=== PATIENT | female | born 1995 | race African-American/Black ===

== ENCOUNTER 2016-11-26 18:00 | Emergency (ER) | payer OTHER ==
[2016-11-26] MEDS ORDERED: ONDANSETRON 4 MG ORAL DISINTEGRATING TAB (S0181) As Ordered ONE (18:20)
--- NOTE | 2016-11-26 18:55 | EDDOCDS ---
Nurse's Notes [facility] Name: Miracle Mcclure Age: 20 yrs Sex: Female : 1995 Arrival Date: 11/26/2016 Time: 18:00 Bed TR7 Private MD: SABINA Huertas Diagnosis: Vomiting;Diarrhea, unspecified Presentation: 11/26 18:03 Presenting complaint: Patient states: nausea/vomiting/diarrhea since this morning. rs3 exposure to sick contact yesterday. Adult Sepsis Screening: The patient does not have new or worsening altered mentation. Patient's respiratory rate is less than 22. Systolic blood pressure is greater than 100. Patient has a qSOFA score of 0- Negative Sepsis Screen. Suicide/Homicide risk assessment- the patient denies having any suicidal and/or homicidal ideations and does not present with any other emotional, behavioral or mental health complaints. Status: The patient is a dependent. Transition of care: patient was not received from another setting of care. 18:03 Acuity: MONTSERRAT Level 4 rs3 18:03 Method Of Arrival: Walkin/Carried/Asstd rs3 Triage Assessment: 18:05 General: Appears in no apparent distress. Pain: Location: abdomen. Pt Declines HIV rs3 testing. 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 none - PMHx: none; - PSHx: none; - Social history: Smoking status: Patient states was never smoker of tobacco. No barriers to communication noted, The patient speaks fluent Norwegian. - : The pt / caregiver states he / she is not on anticoagulants. Home medication list is obtained from the patient. - Exposure Risk Screening:: None identified. Screenin:53 Screening information is obtained from the patient. Fall risk: No risks identified. jjr Assistance ADL's: requires no assistance with activities of daily living. Abuse/DV Screen: The patient / caregiver reports he/she is: not in a situation that causes fear, pain or injury. Nutritional screening: No deficits noted. Advance Directives: There is no active DNR order. home support is adequate. Assessment: 18:52 General: Appears in no apparent distress, Behavior is appropriate for age. EENT: jjr Reports nasal congestion. Respiratory: Airway is patent Respiratory effort is even, unlabored, Respiratory pattern is regular. GI: Abdomen is non- distended Reports diarrhea, nausea, vomiting. Derm: No deficits noted. Vital Signs: 18:01 BP 136 / 72; Pulse 104; Resp 16; Temp 99.1(O); Pulse Ox 100% on R/A; Weight 68.04 kg elp (R); Height 5 ft. 2 in. (157.48 cm) (R); 18:01 Body Mass Index 27.44 (68.04 kg, 157.48 cm) elp Vitals: 18:01 Log In Time: November 26, 2016 at 17:59. elp ED Course: 18:01 Patient visited by Yojana Guerrero PCA. elp 18:01 SABINA Huertas is Private Physician. elp 18:01 Patient moved to Waiting elp 18:02 Patient visited by Yojana Guerrero PCA. elp 18:02 Patient moved to Pre RCE elp 18:05 Triage Initiated rs3 18:17 Patient moved to Triage 1 ar3 18:19 [facility]. btw 18:19 Carolin Alicia MD is Attending Physician. btw 18:19 Patient visited by Rodrigue Bolton PA. btw 18:24 SABINA Huertas is Referral Physician. btw 18:27 [facility] Payment Agreement was scanned into [employer] and attached to record. ks16 18:30 Patient moved to TR3 jjr 18:30 Patient moved to TR7 ar3 18:53 The patient / caregiver is instructed regarding the plan of care and ED course. jjr 18:53 No IV's were initiated during this patient's visit. No procedures done that require jjr assistance. Administered Medications: 18:23 Drug: Ondansetron ODT 4 mg [ondansetron 4 mg disintegrating tablet (1 tabs)] Route: PO; jjr Order Results: There are currently no results for this order. Outcome: 18:24 Discharge ordered by Provider. btw 18:53 Discharge Assessment: patient administered narcotics - no. The following High Risk jjr Discharge criteria are identified: None. Discharged to home ambulatory, with significant other. Condition: stable. Discharge instructions given to patient, Instructed on discharge instructions, follow up and referral plans. medication usage, Demonstrated understanding of instructions, medications, Prescriptions given X 1. No special radiology studies were completed. Property sent home with patient. 18:54 Patient left the ED. delvin Signatures: Cathi Zhang RN RN Alyx Mars RN RN rs3 Jayshree Michaud, OIL FIELD PIPELINE SUPERVISOR OIL FIELD PIPELINE SUPERVISOR ar3 Rodrigue Bolton PA PA btw Yojana Guerrero, OIL FIELD PIPELINE SUPERVISOR OIL FIELD PIPELINE SUPERVISOR elp Caro Martinez, Reg Reg ks16 MTDD
--- NOTE | 2016-11-26 18:55 | EDDOCDS ---
Physician Documentation [facility] Name: Miracle Mcclure Age: 20 yrs Sex: Female : 1995 Arrival Date: 11/26/2016 Time: 18:00 Bed TR7 Private MD: SABINA Huertas Disposition: 11/26/16 18:24 Discharged to Home/Self Care. Impression: Vomiting, Diarrhea, unspecified. - Condition is Stable. - Discharge Instructions: Food Choices to Help Relieve Diarrhea, Adult, Viral Gastroenteritis, [id number]. - Prescriptions for ZOFRAN ODT 4 mg - dissolve 1 tablet by ORAL route 4 times per day As needed do not chew, do not swallow whole; 10 tablet. - Medication Reconciliation, Local Pharmacy Hours form. - Follow up: SABINA Huertas; When: 1 - 2 days; Reason: Further diagnostic work-up, Recheck today's complaints, Continuance of care. - Problem is new. - Symptoms are unchanged. Historical: - Allergies: no known allergies; - Home Meds: 1. none - PMHx: none; - PSHx: none; - Social history: Smoking status: Patient states was never smoker of tobacco. No barriers to communication noted, The patient speaks fluent Norwegian. - : The pt / caregiver states he / she is not on anticoagulants. Home medication list is obtained from the patient. - Exposure Risk Screening:: None identified. 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 2 in. (157.48 cm) (R); 18:01 Body Mass Index 27.44 (68.04 kg, 157.48 cm) elp MDM: 18:06 Ondansetron ODT Oral Disintegrating Tablet 4 mg PO once ordered. btw 18:27 Financial registration complete. ks16 18:27 [facility] Payment Agreement was scanned into [employer] and attached to record. [email or web address] Administered Medications: 18:23 Drug: Ondansetron ODT 4 mg [ondansetron 4 mg disintegrating tablet (1 tabs)] Route: PO; jjr Signatures: Cathi Zhang RN RN jjr Alyx Oliver RN RN rs3 Rodrigue Bolton PA PA btw Caro Martinez, Reg Reg ks16 The chart was reviewed and I authenticate all verbal orders and agree with the evaluation and treatment provided.Attachments: 18:27 [facility] Payment Agreement ks16 MTDD
--- NOTE | 2016-11-28 19:55 | EDDOCDS ---
Physician Documentation [facility] Name: Miracle Mcclure Age: 20 yrs Sex: Female : 1995 Arrival Date: 11/26/2016 Time: 18:00 Bed TR7 Private MD: SABINA Huertas Disposition: 11/26/16 18:24 Discharged to Home/Self Care. Impression: Vomiting, Diarrhea, unspecified. - Condition is Stable. - Discharge Instructions: Food Choices to Help Relieve Diarrhea, Adult, Viral Gastroenteritis, [id number]. - Prescriptions for ZOFRAN ODT 4 mg - dissolve 1 tablet by ORAL route 4 times per day As needed do not chew, do not swallow whole; 10 tablet. - Medication Reconciliation, Local Pharmacy Hours form. - Follow up: SABINA Huertas; When: 1 - 2 days; Reason: Further diagnostic work-up, Recheck today's complaints, Continuance of care. - Problem is new. - Symptoms are unchanged. Historical: - Allergies: no known allergies; - Home Meds: 1. none - PMHx: none; - PSHx: none; - Social history: Smoking status: Patient states was never smoker of tobacco. No barriers to communication noted, The patient speaks fluent Kittitian. - : The pt / caregiver states he / she is not on anticoagulants. Home medication list is obtained from the patient. - Exposure Risk Screening:: None identified. 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 2 in. (157.48 cm) (R); 18:01 Body Mass Index 27.44 (68.04 kg, 157.48 cm) elp MDM: 18:06 Ondansetron ODT Oral Disintegrating Tablet 4 mg PO once ordered. btw 18:27 Financial registration complete. ks 18:27 [facility] Payment Agreement was scanned into [employer] and attached to record. [email or web address] 11/27 12:49 T-Sheet-- Draft Copy was scanned into [employer] and attached to record. gb Administered Medications: 01/29 18:23 Drug: Ondansetron ODT 4 mg [ondansetron 4 mg disintegrating tablet (1 tabs)] Route: PO; jjr Signatures: Frida Harrison, Reg Reg gb Cathi Zhang RN RN jjr Alyx Oliver RN RN rs3 Rodrigue Bolton PA PA btw Caro Martinez, Reg Reg ks16 The chart was reviewed and I authenticate all verbal orders and agree with the evaluation and treatment provided.Attachments: 18:27 [facility] Payment Agreement [email or web address] 11/27 12:49 T-Sheet-- Draft Copy gb Chart Complete MTDD
--- NOTE | 2016-11-28 19:55 | EDDOCDS ---
Nurse's Notes [facility] Name: Miracle Mcclure Age: 20 yrs Sex: Female : 1995 Arrival Date: 11/26/2016 Time: 18:00 Bed TR7 Private MD: SABINA Huertas Diagnosis: Vomiting;Diarrhea, unspecified Presentation: 11/26 18:03 Presenting complaint: Patient states: nausea/vomiting/diarrhea since this morning. rs3 exposure to sick contact yesterday. Adult Sepsis Screening: The patient does not have new or worsening altered mentation. Patient's respiratory rate is less than 22. Systolic blood pressure is greater than 100. Patient has a qSOFA score of 0- Negative Sepsis Screen. Suicide/Homicide risk assessment- the patient denies having any suicidal and/or homicidal ideations and does not present with any other emotional, behavioral or mental health complaints. Status: The patient is a dependent. Transition of care: patient was not received from another setting of care. 18:03 Acuity: MONTSERRAT Level 4 rs3 18:03 Method Of Arrival: Walkin/Carried/Asstd rs3 Triage Assessment: 18:05 General: Appears in no apparent distress. Pain: Location: abdomen. Pt Declines HIV rs3 testing. 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 none - PMHx: none; - PSHx: none; - Social history: Smoking status: Patient states was never smoker of tobacco. No barriers to communication noted, The patient speaks fluent Mauritanian. - : The pt / caregiver states he / she is not on anticoagulants. Home medication list is obtained from the patient. - Exposure Risk Screening:: None identified. Screenin:53 Screening information is obtained from the patient. Fall risk: No risks identified. jjr Assistance ADL's: requires no assistance with activities of daily living. Abuse/DV Screen: The patient / caregiver reports he/she is: not in a situation that causes fear, pain or injury. Nutritional screening: No deficits noted. Advance Directives: There is no active DNR order. home support is adequate. Assessment: 18:52 General: Appears in no apparent distress, Behavior is appropriate for age. EENT: jjr Reports nasal congestion. Respiratory: Airway is patent Respiratory effort is even, unlabored, Respiratory pattern is regular. GI: Abdomen is non- distended Reports diarrhea, nausea, vomiting. Derm: No deficits noted. Vital Signs: 18:01 BP 136 / 72; Pulse 104; Resp 16; Temp 99.1(O); Pulse Ox 100% on R/A; Weight 68.04 kg elp (R); Height 5 ft. 2 in. (157.48 cm) (R); 18:01 Body Mass Index 27.44 (68.04 kg, 157.48 cm) elp Vitals: 18:01 Log In Time: November 26, 2016 at 17:59. elp ED Course: 18:01 Patient visited by Yojana Guerrero PCA. elp 18:01 SABINA Huertas is Private Physician. elp 18:01 Patient moved to Waiting elp 18:02 Patient visited by Yojana Guerrero PCA. elp 18:02 Patient moved to Pre RCE elp 18:05 Triage Initiated rs3 18:17 Patient moved to Triage 1 ar3 18:19 [facility]. btw 18:19 Carolin Alicia MD is Attending Physician. btw 18:19 Patient visited by Rodrigue Bolton PA. btw 18:24 SABINA Huertas is Referral Physician. btw 18:27 [facility] Payment Agreement was scanned into [employer] and attached to record. ks16 18:30 Patient moved to TR3 jjr 18:30 Patient moved to TR7 ar3 18:53 The patient / caregiver is instructed regarding the plan of care and ED course. jjr 18:53 No IV's were initiated during this patient's visit. No procedures done that require jjr assistance. 11/27 12:49 T-Sheet-- Draft Copy was scanned into [employer] and attached to record. gb Administered Medications: 11/26 18:23 Drug: Ondansetron ODT 4 mg [ondansetron 4 mg disintegrating tablet (1 tabs)] Route: PO; jjr Order Results: There are currently no results for this order. Outcome: 18:24 Discharge ordered by Provider. btw 18:53 Discharge Assessment: patient administered narcotics - no. The following High Risk jjr Discharge criteria are identified: None. Discharged to home ambulatory, with significant other. Condition: stable. Discharge instructions given to patient, Instructed on discharge instructions, follow up and referral plans. medication usage, Demonstrated understanding of instructions, medications, Prescriptions given X 1. No special radiology studies were completed. Property sent home with patient. 18:54 Patient left the ED. shellijr Signatures: Frida Harrison, Reg Reg gb Cathi Zhang RN RN jjr Soosairaj, Rosemary, RN RN rs3 Jayshree Michaud, CONSTRUCTION EQUIPMENT MECHANIC HELPER CONSTRUCTION EQUIPMENT MECHANIC HELPER ar3 Rodrigue Bolton, DELANO WICK btw Yojana Guerrero, CONSTRUCTION EQUIPMENT MECHANIC HELPER CONSTRUCTION EQUIPMENT MECHANIC HELPER elp Caro Martinez, Reg Reg ks16 Chart Complete MTDD
--- NOTE | 2016-11-28 19:55 | EDDOCDS ---
Physician Documentation [facility] Name: Miracle Mcclure Age: 20 yrs Sex: Female : 1995 Arrival Date: 11/26/2016 Time: 18:00 Bed TR7 Private MD: SABINA Huertas Disposition: 11/26/16 18:24 Discharged to Home/Self Care. Impression: Vomiting, Diarrhea, unspecified. - Condition is Stable. - Discharge Instructions: Food Choices to Help Relieve Diarrhea, Adult, Viral Gastroenteritis, [id number]. - Prescriptions for ZOFRAN ODT 4 mg - dissolve 1 tablet by ORAL route 4 times per day As needed do not chew, do not swallow whole; 10 tablet. - Medication Reconciliation, Local Pharmacy Hours form. - Follow up: SABINA Huertas; When: 1 - 2 days; Reason: Further diagnostic work-up, Recheck today's complaints, Continuance of care. - Problem is new. - Symptoms are unchanged. Historical: - Allergies: no known allergies; - Home Meds: 1. none - PMHx: none; - PSHx: none; - Social history: Smoking status: Patient states was never smoker of tobacco. No barriers to communication noted, The patient speaks fluent Swazi. - : The pt / caregiver states he / she is not on anticoagulants. Home medication list is obtained from the patient. - Exposure Risk Screening:: None identified. 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 2 in. (157.48 cm) (R); 18:01 Body Mass Index 27.44 (68.04 kg, 157.48 cm) elp MDM: 18:06 Ondansetron ODT Oral Disintegrating Tablet 4 mg PO once ordered. btw 18:27 Financial registration complete. ks 18:27 [facility] Payment Agreement was scanned into [employer] and attached to record. ks16 11/27 12:49 T-Sheet-- Draft Copy was scanned into [employer] and attached to record. gb Administered Medications: 01/29 18:23 Drug: Ondansetron ODT 4 mg [ondansetron 4 mg disintegrating tablet (1 tabs)] Route: PO; jjr Signatures: Frida Harrison, Reg Reg gb Cathi Zhang RN RN jjr Alyx Oliver RN RN rs3 Rodrigue Bolton PA PA btw Caro Martinez, Reg Reg ks16 The chart was reviewed and I authenticate all verbal orders and agree with the evaluation and treatment provided.Attachments: 18:27 [facility] Payment Agreement [email or web address] 11/27 12:49 T-Sheet-- Draft Copy gb Chart Complete MTDD
== END 2016-11-26 18:54 | disposition home or self-care (01) ==
LOC: M ED 18:00
DX: R11.2 Nausea with vomiting, unspecified (principal); R19.7 Diarrhea, unspecified

== ENCOUNTER 2019-01-20 19:51 | Emergency (ER) | payer OTHER ==
[~2019-01-20] VITALS: Ht 160 cm; Wt 72.7 kg
[2019-01-20 19:51] VITALS: BP 150/79
[2019-01-20 20:48] LABS: INFLUENZA A AMPLIFICATION NEGATIVE (NEGATIVE); INFLUENZA B AMPLIFICATION NEGATIVE (NEGATIVE)
== END 2019-01-20 23:00 | disposition left against medical advice (07) ==
LOC: M ED 19:51
DX: R06.02 Shortness of breath (principal); R50.9 Fever, unspecified; R53.83 Other fatigue; R42 Dizziness and giddiness; R20.2 Paresthesia of skin; R47.81 Slurred speech; Z20.828 Contact with and (suspected) exposure to other viral communicable diseases; Z20.89 Contact with and (suspected) exposure to other communicable diseases; J45.909 Unspecified asthma, uncomplicated; Z87.09 Personal history of other diseases of the respiratory system

== ENCOUNTER 2019-02-16 04:17 | Emergency (ER) | payer OTHER ==
[~2019-02-16] VITALS: Ht 160 cm; Wt 70.0 kg
[2019-02-16 04:17] VITALS: BP 134/69
[2019-02-16] MEDS ORDERED: FOLI400T PO (04:26)
== END 2019-02-16 05:56 | disposition left against medical advice (07) ==
LOC: M ED 04:17
DX: R06.02 Shortness of breath (principal); Z53.21 Procedure and treatment not carried out due to patient leaving prior to being seen by health care provider

== ENCOUNTER → 2019-09-04 | Outpatient (CLI) | payer OTHER ==
[~2019-09-04] MED LIST: FOLI400T PO
--- NOTE | 2019-09-04 19:48 | REP ---
Two-view chest: 09/04/2019. Indication: Dyspnea. Cough. Comparison: None. Findings: The lungs are clear. There is no pleural effusion or pneumothorax. The cardiomediastinal silhouette is unremarkable. Impression: Clear lungs. Electronically Signed by Richard Busch DO 09/04/2019 07:40 P
== END ==
LOC: M LRY 19:03
PROVIDERS: ATTEND Nurse Practitioner Family
DX: R05 Cough (principal)
CPT/HCPCS: 71046; 87804; 87880; G0463

== ENCOUNTER → 2019-09-04 | Outpatient (REF) | payer OTHER | LOC: M SFHCLERA 19:22 | PROVIDERS: ATTEND Nurse Practitioner Family | DX: R05 Cough (principal) ==

== ENCOUNTER 2020-03-02 07:11 | Emergency (ER) | payer OTHER ==
[~2020-03-02] VITALS: Ht 160 cm; Wt 75.9 kg
[2020-03-02] MEDS ORDERED: CABE0.5T PO (07:26)
[2020-03-02] MEDS ORDERED: METF-838 PO (07:26)
[2020-03-02] MEDS ORDERED: METOCLOPRAMIDE INJ 10MG/2ML VIAL (J2765 PER 1) IV ONE (07:30)
[2020-03-02] MEDS ORDERED: ACETAMINOPHEN 325 MG TAB PO ONE (07:30)
[2020-03-02 07:41] LABS: BASO # 0.1 10^3/uL (0.0-0.2); BASO % 0.3 % (0.0-1.0); HEMATOCRIT 46.9 % (36.0-47.0); HEMOGLOBIN 16.1 g/dl (12.0-15.5); LYMPH # 2.2 10^3/uL (1.5-5.0); LYMPH % 10.7 % (24.0-44.0); MEAN CORPUSCULAR HEMOGLOBIN 28.2 pg (27.0-33.0); MEAN CORPUSCULAR HGB CONC 34.3 g/dl (32.0-36.5); MEAN CORPUSCULAR VOLUME 82.3 fl (80.0-96.0); MONO % 9.8 % (0.0-5.0); NEUTROPHILS # 16.2 10^3/uL (1.5-8.5); NEUTROPHILS % 78.3 % (36.0-66.0); PLATELET COUNT, AUTOMATED 344 10^3/uL (150-450); WHITE BLOOD COUNT 20.7 10^3/uL (4.0-10.0)
[2020-03-02 07:50] LABS: ALBUMIN 2.4 GM/DL (3.2-5.2); ALT/SGPT 14 U/L (12-78); BILIRUBIN,DIRECT < 0.1 MG/DL (0.0-0.2); BILIRUBIN,TOTAL 0.3 MG/DL (0.2-1.0); BLOOD UREA NITROGEN 11 MG/DL (7-18); CALCIUM LEVEL 8.4 MG/DL (8.5-10.1); CARBON DIOXIDE LEVEL 26 MEQ/L (21-32); CHLORIDE LEVEL 102 MEQ/L (98-107); CREATININE FOR GFR 0.94 MG/DL (0.55-1.30); GLOMERULAR FILTRATION RATE > 60.0 (>60); GLUCOSE, FASTING 113 MG/DL (70-100); HCG, SERUM QUALITATIVE NEGATIVE (NEGATIVE); LIPASE 38 U/L (73-393); POTASSIUM SERUM 4.6 MEQ/L (3.5-5.1); SODIUM LEVEL 134 MEQ/L (136-145); TOTAL PROTEIN 6.1 GM/DL (6.4-8.2)
[2020-03-02] MEDS ORDERED: NS 1,000 ML IV ONE (08:00)
[2020-03-02] MEDS ORDERED: ISOVUE-370 76% 100ML VIAL As Ordered ONE (08:56)
--- NOTE | 2020-03-02 09:15 | REP ---
PELVIC SONOGRAPHY: HISTORY: Status post egg retrieval procedure 1 day prior with abdominal pain. No comparison pelvic sonography. FINDINGS: Transabdominal scanning is performed. The patient declined transvaginal scanning due to symptoms. Uterine dimensions are normal at 8.1 x 3.8 x 4.6 cm. Endometrial echo is 1.1 cm thick. No focal uterine mass is seen. There is a moderate amount of diffuse abdominal ascites in the right upper quadrant, left upper quadrant, and centrally in the pelvis. The ovaries are bilaterally moderately to markedly enlarged. Right ovary dimensions are 13.1 x 8.0 x 11.7 cm. Left ovary dimensions of 10.8 x 7.1 x 8.5 cm. There are multiple ovarian follicles. Blood flow is present in both ovaries by Doppler. Ovarian volumes are calculated at 641 mL as on the right and 341 mL on the left. IMPRESSION: Moderate to marked bilateral ovarian enlargement, diffuse moderate abdominal ascites. Findings suggestive of some degree of ovarian hyperstimulation syndrome. Electronically Signed by Ruben Ramos MD 03/02/2020 12:02 P
--- NOTE | 2020-03-02 10:19 | REP ---
CT ABDOMEN AND PELVIS WITH IV CONTRAST: TECHNIQUE: Axial contrast enhanced images from the lung bases to the pubic symphysis using 100 mL Isovue-370 intravenous contrast material with multiplanar reformations. Visualized lung bases are clear. The liver, spleen, adrenals, pancreas and kidneys are unremarkable in appearance. There is no abdominal aortic aneurysm. I see no adenopathy. There is no free air. There is moderate free fluid throughout the abdomen and pelvis. The ovaries are markedly enlarged and contain multiple innumerable large follicles. Maximum diameter of the right ovary is 11.7 cm, displaced superiorly. Maximum diameter of the left ovary is about 8.4 cm. The uterus is grossly unremarkable. The appendix is normal. IMPRESSION: Markedly enlarged ovaries both containing large innumerable follicles. Findings suggest ovarian hyperstimulation. There is moderate free fluid throughout the abdomen and pelvis. Electronically Signed by Anoop Bonds MD 03/02/2020 10:29 A
[2020-03-02] MEDS ORDERED: ACE65ERTAB PO (10:48)
[2020-03-02 11:00] VITALS: BP 139/76
== END 2020-03-02 11:20 | disposition home or self-care (01) ==
LOC: M ED 07:11
DX: N98.1 Hyperstimulation of ovaries (principal); R00.0 Tachycardia, unspecified; J45.909 Unspecified asthma, uncomplicated; Z79.899 Other long term (current) drug therapy; Z79.84 Long term (current) use of oral hypoglycemic drugs
CPT/HCPCS: 36415; 74177; 76856; 80047; 80048; 80076; 81001; 83605; 83690; 84702; 84703; 85025; 86850; 86900; 86901; 93041; 93976; 96361; 96374; 99285; J2765; Q9967

== ENCOUNTER → 2020-04-07 | Outpatient (CLI) | payer OTHER ==
[~2020-04-07] MED LIST changes: +ACE65ERTAB PO; +CABE0.5T PO; +METF-838 PO
[2020-04-07 10:09] LABS: ESTRADIOL 146.2 PG/ML; PROGESTERONE 57.27 NG/ML
== END ==
LOC: M WUC 08:14
PROVIDERS: ATTEND Obstetrics & Gynecology Reproductive Endocrinology
DX: E28.9 Ovarian dysfunction, unspecified (principal)

== ENCOUNTER → 2020-04-12 | Outpatient (CLI) | payer OTHER ==
[2020-04-12 11:05] LABS: PROGESTERONE 57.19 NG/ML
== END ==
LOC: M WUC 08:09
PROVIDERS: ATTEND Obstetrics & Gynecology Reproductive Endocrinology
DX: Z32.00 Encounter for pregnancy test, result unknown (principal)

== ENCOUNTER → 2020-04-14 | Outpatient (CLI) | payer OTHER ==
[~2020-04-14] MED LIST changes: +D3400CAP PO; +FOLI1TAB11 PO; +PRENATAL VIT
[2020-04-14 10:21] LABS: ESTRADIOL 296.5 PG/ML; THYROID STIMULATING HORMONE 2.68 uIU/ML (0.358-3.740)
[2020-04-14 10:42] LABS: PROGESTERONE 52.08 NG/ML
== END ==
LOC: M WUC 08:03
PROVIDERS: ATTEND Obstetrics & Gynecology Reproductive Endocrinology
DX: Z32.01 Encounter for pregnancy test, result positive (principal)

== ENCOUNTER → 2020-04-28 | Outpatient (CLI) | payer OTHER ==
[~2020-04-28] MED LIST changes: -D3400CAP PO; -FOLI1TAB11 PO; -PRENATAL VIT
[2020-04-28 11:15] LABS: ESTRADIOL 596.3 PG/ML; PROGESTERONE 65.33 NG/ML
== END ==
LOC: M WUC 08:05
PROVIDERS: ATTEND Obstetrics & Gynecology Reproductive Endocrinology
DX: O09.00 Supervision of pregnancy with history of infertility, unspecified trimester (principal)

== ENCOUNTER → 2020-05-19 | Outpatient (CLI) | payer OTHER ==
[~2020-05-19] MED LIST changes: +D3400CAP PO; +FOLI1TAB11 PO; +PRENATAL VIT
[2020-05-19 10:51] LABS: ESTRADIOL 1554.7 PG/ML
[2020-05-19 11:19] LABS: PROGESTERONE 71.05 NG/ML
== END ==
LOC: M WUC 08:42
PROVIDERS: ATTEND Obstetrics & Gynecology Reproductive Endocrinology
DX: E28.9 Ovarian dysfunction, unspecified (principal)

== ENCOUNTER 2020-06-25 16:14 | Emergency (ER) | payer OTHER ==
[~2020-06-25] VITALS: Ht 160 cm; Wt 77.6 kg
[~2020-06-25 16:14] MED LIST changes: -D3400CAP PO; -FOLI1TAB11 PO; -PRENATAL VIT
[2020-06-25 18:05] LABS: HEMATOCRIT 37.7 % (36.0-47.0); HEMOGLOBIN 12.7 g/dl (12.0-15.5); MEAN CORPUSCULAR HEMOGLOBIN 28.2 pg (27.0-33.0); MEAN CORPUSCULAR HGB CONC 33.7 g/dl (32.0-36.5); MEAN CORPUSCULAR VOLUME 83.6 fl (80.0-96.0); PLATELET COUNT, AUTOMATED 272 10^3/uL (150-450); RED BLOOD COUNT 4.51 10^6/uL (4.00-5.40); WHITE BLOOD COUNT 11.6 10^3/uL (4.0-10.0)
--- NOTE | 2020-06-25 18:10 | REPVR ---
PROCEDURE INFORMATION: Exam: US First Trimester, Transabdominal Exam date and time: 06/25/2020 5:19 PM Age: 24 years old Clinical indication: Lmp or gestational age (in weeks): 14; Antepartum complications; Bleeding; ; Additional info: 14 week vb TECHNIQUE: Imaging protocol: Real-time transabdominal obstetrical ultrasound of the maternal pelvis and a first trimester , less than 14 weeks 0 days, with image documentation. COMPARISON: US PELVIC NON-OB COMPLETE 03/02/2020 8:02 AM FINDINGS: Gestation: Single living intrauterine gestation with crown-rump length of 78.02 mm and estimated gestational age of 13 weeks and 6 days. This correlates well with the gestational age by LMP of 14 weeks and 5 days. Embryonic/ heart rate: 149 bpm. Placenta: The placenta is partially anterior and posterior, with a moderately large 5.8 x 2.1 x 4.1 cm subchorionic hematoma present anteriorly. Amniotic fluid: Amniotic fluid is normal for gestational age. BIOMETRY: Gestational age (AUA): The estimated gestational age is 13 weeks and 6 days with an EDC of 12/25/2020. MATERNAL: Uterus: Unremarkable. There is some echogenic material possibly blood clots in the vaginal canal incidentally noted. Cervix: Unremarkable. The cervix measures 3.6 cm in length and is closed. Right adnexa: Unremarkable. The right ovary measures 4.1 x 3.5 x 2.1 cm. Normal resistive index of 0.40. Left adnexa: Unremarkable. The left ovary measures 3.6 x 2.4 x 2.6 cm. Normal resistive index of 0.63. Intraperitoneal space: No intraperitoneal free fluid. IMPRESSION: 1. Single living intrauterine fetus in variable presentation with estimated gestational age of 13 weeks and 6 days and EDC of 12/25/2020. 2. The placenta is partially anterior and posterior, with a moderately large 5.8 x 2.1 x 4.1 cm subchorionic hematoma present anteriorly. 3. There is some echogenic material present in the vaginal canal which could represent blood clots. Electronically signed by: Walter Sagastume On 06/25/2020 18:10:11 PM
[2020-06-25 18:51] VITALS: BP 131/75
== END 2020-06-25 19:04 | disposition home or self-care (01) ==
LOC: M ED 16:14
DX: O26.852 Spotting complicating pregnancy, second trimester (principal); Z79.84 Long term (current) use of oral hypoglycemic drugs; Z79.899 Other long term (current) drug therapy; Z3A.13 13 weeks gestation of pregnancy

== ENCOUNTER 2020-07-01 17:56 | Emergency (ER) | payer OTHER ==
[~2020-07-01] VITALS: Ht 160 cm; Wt 76.6 kg
[2020-07-01] MEDS ORDERED: PRENATAL VIT (18:04)
[2020-07-01 18:31] LABS: HEMATOCRIT 36.9 % (36.0-47.0); HEMOGLOBIN 12.7 g/dl (12.0-15.5); MEAN CORPUSCULAR HEMOGLOBIN 28.1 pg (27.0-33.0); MEAN CORPUSCULAR HGB CONC 34.4 g/dl (32.0-36.5); MEAN CORPUSCULAR VOLUME 81.6 fl (80.0-96.0); PLATELET COUNT, AUTOMATED 279 10^3/uL (150-450); RED BLOOD COUNT 4.52 10^6/uL (4.00-5.40); WHITE BLOOD COUNT 12.6 10^3/uL (4.0-10.0)
--- NOTE | 2020-07-01 19:37 | REPVR ---
PROCEDURE INFORMATION: Exam: US , Limited Exam date and time: 07/01/2020 7:21 PM Age: 24 years old Clinical indication: Lmp or gestational age (in weeks): 15w 4d; Other: Vaginal bleeding; ; Additional info: Vaginal bleedig TECHNIQUE: Imaging protocol: Real-time ultrasound of the maternal uterus with image documentation. Exam focused on the clinical indication. COMPARISON: US OBS SINGEL GEST 06/25/2020 5:02 PM FINDINGS: Gestation: Intrauterine gestation. heart rate: heart rate 150 bpm. Placenta: Posterior placenta. No placenta previa. Elevation of the chorionic membranes demonstrated anteriorly consistent with a residual subchorionic hemorrhage measuring approximately 4.2 x 5.8 x 1.4 cm. Amniotic fluid: Amniotic fluid volume within normal limits. MATERNAL: Cervix: Cervix measures 3.4 cm. No bulging membranes or funneling. IMPRESSION: Evidence of a subchorionic hemorrhage still noted as described above. Posterior placenta without placenta previa. Electronically signed by: Enoc Wilkerson On 07/01/2020 19:37:28 PM
[2020-07-01 20:13] VITALS: BP 127/63
== END 2020-07-01 20:14 | disposition home or self-care (01) ==
LOC: M ED 17:56
DX: O20.8 Other hemorrhage in early pregnancy (principal); O99.512 Diseases of the respiratory system complicating pregnancy, second trimester; Z3A.15 15 weeks gestation of pregnancy; Z79.899 Other long term (current) drug therapy

== ENCOUNTER 2020-09-02 23:07 | Outpatient (CLI) | payer OTHER ==
[~2020-09-02] VITALS: Ht 160 cm; Wt 81.5 kg
[~2020-09-02 23:07] MED LIST changes: +PRENATAL VIT
[2020-09-02 23:16] VITALS: BP 130/77
[2020-09-02] MEDS ORDERED: D3400CAP PO (23:45)
[2020-09-02] MEDS ORDERED: FOLI1TAB11 PO (23:45)
[2020-09-03] MEDS ORDERED: MAGNESIUM *L&D* 4GM/100ML BAG (40MG/ML) As Ordered ONE (00:54)
[2020-09-03] MEDS ORDERED: MAGNESIUM SULFATE 4% INJ 20GM/500ML (40MG/ML) As Ordered ONE (00:55)
[2020-09-03] MEDS ORDERED: PENICILLIN G POTASSIUM 5 MU VIAL As Ordered ONE (00:55)
[2020-09-03] MEDS ORDERED: PENICILLIN G POTASSIUM IV 5 MU in D5W MINI-BAG PLUS 100 ML IV STA (00:56)
[2020-09-03] MEDS ORDERED: LR 1,000 ML IV SCH (00:56)
[2020-09-03] MEDS ORDERED: LACTATED RINGER'S 1000 ML IV ONE (01:00)
[2020-09-03] MEDS ORDERED: MAGNESIUM *L&D* 4GM/100ML BAG (40MG/ML) IV ONE (01:00)
[2020-09-03 01:12] LABS: HEMATOCRIT 34.4 % (36.0-47.0); HEMOGLOBIN 11.4 g/dl (12.0-15.5); MEAN CORPUSCULAR HEMOGLOBIN 27.3 pg (27.0-33.0); MEAN CORPUSCULAR HGB CONC 33.1 g/dl (32.0-36.5); MEAN CORPUSCULAR VOLUME 82.3 fl (80.0-96.0); PLATELET COUNT, AUTOMATED 256 10^3/uL (150-450); RED BLOOD COUNT 4.18 10^6/uL (4.00-5.40); WHITE BLOOD COUNT 12.2 10^3/uL (4.0-10.0)
[2020-09-03] MEDS ORDERED: MAG Sulf (OBGYN) 20GM/500ML 20,000 MG in IV 1 EA IV SCH (01:15)
[2020-09-03] MEDS ORDERED: BETAMETHASONE SOLUSPAN 6MG/ML 5ML VIAL (J0702 PER 3MG) IM ONE (01:15)
--- NOTE | 2020-09-03 01:18 | IPNPDOC ---
Text Note Date of Service The patient was seen on 09/03/20. NOTE AM 24 Y.0 G2 PO A1 LMP 03/17/20 EDC 12/19/2020 AT 24,5 WEEKS PRESENTS WITH MUCUS AND VAGINAL BLEEDING SLIGHT BRIGHT RED NO CONTRACTIONS, NO LOSS OF FLUID . MONITOR CATEGORY 1 STRIP NO CONTRACTIONS BASELINE NORMAL NO DECELERATIONS MODERATE VARIABILITY FOR 24.4 WEEKS , STERILE SPECULUM EXAM 4 CM BULGING MEMBRANES , HISTORY IVF , MARGINAL INSERTION CORD , PATIENT IV ANTIBIOTICS IV STEROIDS IV MAG SULFATE BULL IV COVED TESTED REFERRED TO DAYNE JENNINGS DR . VS,Fishbone, I+O VS, Fishbone, I+O Vital Signs Date Time Temp Pulse Resp B/P (MAP) Pulse Ox O2 Delivery O2 Flow Rate FiO2 09/02/20 23:16 98.9 109 18 130/77 (94) Lucio Reed MD Sep 03, 2020 01:16
[2020-09-03] MEDS ORDERED: PENICILLIN G POTASSIUM IV 2.5 MU in IV 1 EA IV SCH (05:00)
== END 2020-09-03 02:23 | disposition short-term general hospital (02) ==
LOC: M LDO 23:07
PROVIDERS: ATTEND Obstetrics & Gynecology
DX: O46.92 Antepartum hemorrhage, unspecified, second trimester (principal); O34.32 Maternal care for cervical incompetence, second trimester; Z3A.24 24 weeks gestation of pregnancy
CPT/HCPCS: 59025; 85027; 86780; 86850; 86900; 86901; 96372; 96374; 96375; G0378; G0463; J0702; J3475; U0002